=== PATIENT | female | born 1995 | race Hispanic/Latino ===

== ENCOUNTER 2019-07-08 08:41 | Day surgery (SDC) | payer SELFPAY ==
[2019-07-08 09:16] VITALS: BMI 28.0
[2019-07-08 09:19] VITALS: BP 104/68; TEMP 98.2
[2019-07-08] MEDS ORDERED: hydrALAZINE 20 MG/ML VIAL SLOW IVP PRN (09:54)
[2019-07-08] MEDS ORDERED: Acetaminophen 325 MG TAB PO PRN (09:55)
--- NOTE | 2019-07-08 09:58 | PDOC.FPROB ---
FMR OB H&P: HPI - History of Present Illness Chief Complaint: Left sided abdominal pain History of Present Illness: 24 y/o , @ 24.3 wks, dated by 6.1 wk sono, presents to L&D for left sided abdominal pain and nausea. She states this pain started X1 day ago. She complains of increased white vaginal discharge starting X 1 day ago. Pt states she feels baby moving appropriately. She complains of a headache, that was relieved with Tylenol, but still present. Pt denies any dysuria, hematuria, or urinary frequency. She states she has the sensation of contractions every minute. Pt denies and LOF, Vaginal bleeding, or any recent sexual intercourse. 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 Primary Care Physician: BETH FMR OB H&P: Current - Care : 2 Para: 1 Gestational age: 24.3 Due date: 10/25/19 Dating Criteria: 6.1 week sono - OB Labs Blood type: O RH: positive Antibody Screen: negative HIV: negative RPR: negative HepBsAg: negative Rubella: immune Gonorrhea: negative Chlamydia: negative Pap Smear: NILM 1 hour gtt: 115 GBS: unknown H&H: 11.6/34.2 - First Trimester Ultrasound First trimester: 6.1 wks sono, inconsistent with dates of LMP. TARIK: 10/25/19 - Anatomy Survey Anatomy survey: 06/01/19 [place] of 32% FMR OB H&P: History - Past Medical History PMH: Denies prior hx of STI's No known medical problems - OB History OB History: Last delivery vaginal on 06/01/2012 in [facility] - SLABBER LIGHT History SLABBER [place]IGHT History: NILM last pap - Surgical History Sx History: No surgeries - Social History Social History: Denies etoh, alcohol, or drug use. - Family History Family History: Pt denies any family medical history. FMR OB H&P: Medications - Current Home Medications: Medication Instructions Recorded Confirmed Type Nitrofurantoin Macrocrystal 100 mg PO BID 5 Days #10 capsule 07/08/19 Rx [Nitrofurantoin] No122/Iron/Folic Acid 1 each PO DAILY 07/08/19 07/08/19 History [ Multi Tablet] Allergies/Adverse Reactions: Allergies Allergy/AdvReac Type Severity Reaction Status Date / Time No Known Allergies Allergy Verified 07/08/19 09:09 FMR OB H&P: ROS - Review of Systems General: denies: fever/chills, weight/appetite/sleep changes, night sweats, recent trauma Eyes: denies: eye pain, vision changes, double vision, scotomas ENT: denies: nasal congestion, rhinorrhea, sore throat Cardiovascular: denies: chest pain, palpitation, edema Respiratory: denies: cough, congestion, shortness of breath Gastrointestinal: reports: abdominal pain, cramping, nausea. denies: indigestion, bloating, vomiting, diarrhea Genitourinary (Female): reports: vaginal discharge (white, increasing amount over past day), contractions (subjectively occuring every minute). denies: incontinence, dysuria, hematuria, hesitancy, vaginal bleeding Musculoskeletal: reports: pain (low back pain). denies: decrease range of motion Neurologic: denies: numbness, seizures Integumentary: denies: itching, rash Endocrine: denies: polyuria Hematologic/Lymphatic: denies: prolonged or excessive bleeding, enlarged lymph nodes Psychological: denies: depression, anxiety FMR OB H&P: Vital Signs - Maternal Vital signs: Vital Signs - First Documented Temp Pulse Resp BP Pulse Ox 98.2 F 83 18 104/68 98 07/08/19 09:08 07/08/19 09:08 07/08/19 09:08 07/08/19 09:08 07/08/19 09:08 - Heart Tones Baseline: 150 (reactive ) Variability: moderate Acceleration: present Deceleration: absent [place] contractions every: no contractions on TOCO FMR OB H&P: Physical Exam - Physical Exam General: NAD, awake, alert and oriented HEENT: normocephalic and atraumatic, PERRLA, EOMI, MMM, conjunctiva clear, no scleral icterus, grossly normal vision, grossly normal hearing, good dention Neck: supple, FROM, trachea midline, no LAD, no JVD Chest: non-tender to palpation, no lesions Heart: RRR, normal S1/S2, no murmurs/rubs/gallops, pulses present, no edema General: CTAB, no respiratory distress, good air movement, no rales/rhonchi, no wheezing, no retractions Abdomen: soft, gravid, fundus(cm) (at umbilicus) Deviation from normal: tenderness to LLQ with deep palpation Musculoskeletal: normal gait and station, pulses present, FROM in all four extremities, no atrophy Deviation from normal: tenderness to palpation of left flank. Neurological: cranial nerves II through XII intact, sensation to pain,touch and proprioception grossly normal, DTR +2 Skin: no rash, good tugor, capillary refill <2 seconds, no jaundice Lymphatic: no unusual bruising or bleeding, no purpura, no petechia Psychiatric: intact recent and remote memory, good judgement and insight, normal mood and affect FMR OB H&P: Results - Labs Lab results: Microbiology 07/08/19 09:57 Vaginal Vaginitis Screen - Final negative Laboratory Tests 07/08/19 09:57 Urine Blood 1+ A Ur Leukocyte Esterase 500 A Urine WBC 21-50 A Urine Bacteria 1+ Urine Culture Reflexed Yes A FMR OB H&P: A/P - Problem List (1) Acute cystitis during in second trimester Status: Acute Code(s): O23.12 - INFECTIONS OF BLADDER IN , SECOND TRIMESTER Disposition: Acute cystitis, pt stable. Discharge on outpt antibiotics. Follow up on Urine culture. Discussion: Date/Time: 07/08/19 0958 24 y/o @ 24.3 wks presents with LLQ abdominal pain. 1. Acute Cystitis in 2nd Trimester -UA blood, leuk est, WBC and bact positive. -Nitrofurantoin 100 MG BID for X5 days -Reflex culture 2. IUP @ 24.3 wks -FHT's 150 baseline, reactive strip -Maternal vitals within normal limits. -No contractions on TOCO This H&P was discussed with Dr. So, who agree with the above documentation and plan.
--- NOTE | 2019-07-08 10:00 | PDOC.EVN ---
Event Note - Event Note Event Note: OBGYN History And Physical Attending Attestation Time: 953 L&D Patient first seen by Resident subcontracts manager, seen by me. CC: LLQ discomfort, possible CTX, on/off nausea HPI: 24 yo at 24 weeks 3 days with on/off mild LLQ pain, no or GIsxs, no VB, no LOF, no fevers, no recent trauma. White Vag dsch Review of Systems: complete ROS completed and as epr HPI. Unsure if CTX or "cramps" Past Med: none Past OB: unsure if last delivery was at 35 weeks or term (poor historian) ALL: none Social: negative x3 Surgical HX: none PHYSICAL: 104/64 83 18 98.2 NAD Ut soft No VB No gross evidence LOF FHTs pos 140s Assessment and plan: 24 weeks with nonspecific SXS of LLQ discomfort and nausea , vag dsch Plan: 1. VP3; I do not suspect ROM at this time 2. Check CMP 3. Transvag cervical lebgth sono 4. Check clinic record
[2019-07-08] MEDS ORDERED: Ondansetron ODT 4 MG TAB PO PRN (10:03)
[2019-07-08 10:21] LABS: Bilirubin Negative (Negative); Blood, Urine 1+ (Negative); Clarity Clear (Clear); Glucose, Urine (Dipstick) Normal (Negative); Leukocyte 500 Leu/uL (Negative); Nitrite Negative (Negative); Protein, Urine (Dipstick) 10 mg/dL (Neg-Trace); RBC/HPF 0-3 HPF (0-3); Squamous Epithelial 0-3 HPF (0-3); Urobilinogen Normal mg/dL (Less than 2); WBC/HPF 21-50 HPF (0-3)
[2019-07-08 10:30] LABS: Bacteria/HPF 1+ HPF (None Seen)
[2019-07-08 10:31] LABS: Urine Culture Reflex Yes Yes
[2019-07-08 10:37] LABS: ALT (SGPT) 8 U/L (8-55); AST (SGOT) 10 U/L (5-34); Albumin 3.7 g/dL (3.5-5.0); Alkaline Phosphatase 77 U/L (40-150); Anion Gap 11 mmol/L (10-20); BUN (Urea Nitrogen) Less than 4 mg/dL (7.0-18.7); Bilirubin, Total 0.3 mg/dL (0.2-1.2); Calc. Creatinine Clearance 176 mL/min (70-130); Calcium 8.9 mg/dL (7.8-10.44); Carbon Dioxide 22 mmol/L (22-29); Chloride 108 mmol/L (98-107); Estimated GFR-MDRD Greater than 90; Globulin 2.6 g/dL (2.4-3.5); Glucose 94 mg/dL (70-105); Potassium 3.6 mmol/L (3.5-5.1); Protein, Total 6.3 g/dL (6.0-8.3); Sodium 137 mmol/L (136-145)
--- NOTE | 2019-07-08 11:22 | ULT ---
[facility] History: Evaluate cervical length. Comparison: None. Findings: Real-time grayscale evaluation of the cervix was performed. Cervix is closed and measures 4.5 cm in length. Impression: Closed cervix measuring 4.5 cm in length.
--- NOTE | 2019-07-08 11:44 | PDOC.EVN ---
Event Note - Event Note Event Note: Faculty Note: CX length normal CMP ok UA c/w UTI...will RX with macrobid 100mg po BID X 5 days No evidence LOF or PTL
== END 2019-07-08 11:21 | disposition home or self-care (01) ==
LOC: L&D/OP 08:41
PROVIDERS: ATTEND Emergency Medicine
DX: O23.12 Infections of bladder in pregnancy, second trimester (principal); B96.20 Unspecified Escherichia coli [E. coli] as the cause of diseases classified elsewhere; O99.89 Other specified diseases and conditions complicating pregnancy, childbirth and the puerperium; N89.8 Other specified noninflammatory disorders of vagina; Z3A.24 24 weeks gestation of pregnancy
CPT/HCPCS: 36415; 51701; 76815; 80053; 81001; 87077; 87086; 87186; 87480; 87510; 87660; 99283

== ENCOUNTER 2019-10-09 05:31 | Inpatient (IN) | payer MEDICAID, OTHER, SELFPAY ==
[2019-10-09 06:06] VITALS: BMI 31.9
[2019-10-09] MEDS ORDERED: Ondansetron PF 4 MG/2 ML Vial IVP PRN ×2 (06:11→14:03)
[2019-10-09] MEDS ORDERED: Calcium Gluc 4.6 MEQ/10 ML (100 MG/ML) SLOW IVP PRN (06:11)
[2019-10-09] MEDS ORDERED: hydrALAZINE 20 MG/ML VIAL SLOW IVP PRN ×2 (06:11)
[2019-10-09] MEDS: Magnesium Sulfate 20 GM/WATER 500 ML BAG IVPB SCH (06:30)
[2019-10-09 06:32] LABS: Hemoglobin 11.6 g/dL (12.0-16.0); Mean Corpuscular HGB CONC 35.5 g/dL (32.0-36.0); Mean Corpuscular Hemoglobin 28.7 pg (27.0-31.0); Mean Corpuscular Volume 80.8 fL (78.0-98.0); Mean Platelet Volume 8.5 fL (7.4-10.4); Platelet Count 129 thou/uL (130-400); RBC Distribution Width 12.3 % (11.5-14.5); Red Blood Cell (RBC) Count 4.05 mill/uL (4.20-5.40); White Blood Cell (WBC) Count 8.6 thou/uL (4.8-10.8)
[2019-10-09] MEDS: Lactated Ringer's 1,000 ML IV SCH ×3 (06:38→22:42)
[2019-10-09 06:51] LABS: ALT (SGPT) 47 U/L (8-55); AST (SGOT) 59 U/L (5-34); Albumin 3.3 g/dL (3.5-5.0); Alkaline Phosphatase 200 U/L (40-110); Anion Gap 16 mmol/L (10-20); BUN (Urea Nitrogen) 7 mg/dL (7.0-18.7); Bilirubin, Total 0.5 mg/dL (0.2-1.2); Calc. Creatinine Clearance 153 mL/min (70-130); Calcium 8.8 mg/dL (7.8-10.44); Carbon Dioxide 18 mmol/L (22-29); Chloride 106 mmol/L (98-107); Estimated GFR-MDRD Greater than 90; Globulin 3.4 g/dL (2.4-3.5); Glucose 93 mg/dL (70-105); Potassium 4.1 mmol/L (3.5-5.1); Protein, Total 6.7 g/dL (6.0-8.3); Sodium 136 mmol/L (136-145)
[2019-10-09] MEDS ORDERED: Misoprostol 100 MCG TAB VAG SCH ×2 (07:00)
[2019-10-09] MEDS ORDERED: Misoprostol 100 MCG TAB ONE ×2 (07:04→07:12)
[2019-10-09] MEDS ORDERED: Butorphanol Tartrate 1 MG/ML VIAL ONE (07:07)
[2019-10-09 07:08] LABS: HBSAg Index 0.21 S/CO (0-0.99); Hep B Surf Ag Non-Reactive S/CO (NonReactive); Syphilis Antibody Nonreactive (Nonreactive); Syphilis Antibody Index 0.04 S/CO (<1.00 Non-Reactive)
--- NOTE | 2019-10-09 07:55 | PDOC.FPROB ---
FMR OB H&P: HPI - History of Present Illness Chief Complaint: H/A, RUQ pain Indentification: 24 y/o @ 37.5 WGA by 6.1 wk sono History of Present Illness: Pt reports H/A for about 5 days and then RUQ pain that started after. She reports intermittent hand and foot swelling. Denies SOB or vision changes. She reports some clear vaginal d/c yesterday afternoon, but otherwise no continued leaking or d/c. She denies vaginal bleeding or ctx. Endorses movement. Primary Care Physician: Dr. Cabrera - [facility] FMR OB H&P: Current - Care : 2 Para: 1001 Gestational age: 37w5d Due date: 10/25/19 Dating Criteria: 6w1d sono - OB Labs Blood type: O RH: positive Antibody Screen: negative HIV: negative RPR: negative HepBsAg: negative Rubella: immune Gonorrhea: negative Chlamydia: negative Pap Smear: NILM 1 hour gtt: 138 H&H: 10.3/29.8 FMR OB H&P: History - Past Medical History PMH: None - OB History OB History: 1 prior term - PRODUCT FINISHER History PRODUCT FINISHER History: Denies h/o abnormal paps or STI's - Surgical History Sx History: Appendectomy - Social History Social History: Denies tobacco, EtOH, or drug use - Family History Family History: Denies FMR OB H&P: Medications - Current Home Medications: Medication Instructions Recorded Confirmed Type Nitrofurantoin Macrocrystal 100 mg PO BID 5 Days #10 capsule 07/08/19 10/09/19 Rx [Nitrofurantoin] No122/Iron/Folic Acid 1 each PO DAILY 07/08/19 10/09/19 History [ Multi Tablet] Allergies/Adverse Reactions: Allergies Allergy/AdvReac Type Severity Reaction Status Date / Time No Known Allergies Allergy Verified 10/09/19 06:01 FMR OB H&P: ROS - Review of Systems General: denies: fever/chills, fatigue Eyes: denies: vision changes, scotomas ENT: denies: nasal congestion, sore throat Cardiovascular: reports: edema. denies: chest pain Respiratory: denies: cough, shortness of breath Gastrointestinal: reports: abdominal pain. denies: nausea Genitourinary (Female): reports: vaginal discharge. denies: vaginal bleeding, contractions Musculoskeletal: denies: pain, tenderness Neurologic: denies: syncope, seizures Integumentary: denies: itching, rash Hematologic/Lymphatic: denies: prolonged or excessive bleeding, enlarged lymph nodes FMR OB H&P: Vital Signs - Maternal Vital signs: Vital Signs - First Documented Pulse BP Pulse Ox 98 148/100 H 100 10/09/19 05:59 10/09/19 05:59 10/09/19 05:59 - Heart Tones Baseline: 150 Variability: moderate (initially, but now minimal after morphine administration) Acceleration: present Deceleration: variable (intermittent) Category: category 2 FMR OB H&P: Physical Exam - Physical Exam General: NAD, awake, alert and oriented HEENT: MMM, conjunctiva clear, grossly normal vision, grossly normal hearing Neck: supple, no LAD Heart: RRR, normal S1/S2, no murmurs/rubs/gallops, pulses present, no edema General: CTAB, no respiratory distress, good air movement, no rales/rhonchi, no wheezing Abdomen: soft, gravid, other (TTP in RUQ) Musculoskeletal: pulses present, FROM in all four extremities Neurological: cranial nerves II through XII intact, no clonus Skin: good tugor, capillary refill <2 seconds Psychiatric: intact recent and remote memory, good judgement and insight - Pelvic Exam SVE: 1/0/-2 Presentation: cephalic as confirmed on bedside sono FMR OB H&P: Results - Labs Lab results: Laboratory Results - last 24 hr 10/09/19 10/09/19 10/09/19 06:21 06:21 06:21 WBC RBC Hgb Hct MCV MCH MCHC RDW Plt Count MPV Sodium 136 Potassium 4.1 Chloride 106 Carbon Dioxide 18 L Anion Gap 16 BUN 7 Creatinine 0.62 Estimated GFR (MDRD) Greater than 90 Glucose 93 Calcium 8.8 Total Bilirubin 0.5 AST 59 H ALT 47 Alkaline Phosphatase 200 H Serum Total Protein 6.7 Albumin 3.3 L Globulin 3.4 Albumin/Globulin Ratio 1.0 L Urine Protein Syphilis IgG/IgM Ab Nonreactive Hep Bs Antigen Non-Reactive Blood Type Antibody Screen 10/09/19 10/09/19 10/09/19 06:21 06:21 06:42 WBC 8.6 RBC 4.05 L Hgb 11.6 L Hct 32.7 L MCV 80.8 MCH 28.7 MCHC 35.5 RDW 12.3 Plt Count 129 L MPV 8.5 Sodium Potassium Chloride Carbon Dioxide Anion Gap BUN Creatinine Estimated GFR (MDRD) Glucose Calcium Total Bilirubin AST ALT Alkaline Phosphatase Serum Total Protein Albumin Globulin Albumin/Globulin Ratio Urine Protein Syphilis IgG/IgM Ab Hep Bs Antigen Blood Type O POSITIVE O POSITIVE Antibody Screen NEGATIVE 10/09/19 06:46 WBC RBC Hgb Hct MCV MCH MCHC RDW Plt Count MPV Sodium Potassium Chloride Carbon Dioxide Anion Gap BUN Creatinine Estimated GFR (MDRD) Glucose Calcium Total Bilirubin AST ALT Alkaline Phosphatase Serum Total Protein Albumin Globulin Albumin/Globulin Ratio Urine Protein 300 A Syphilis IgG/IgM Ab Hep Bs Antigen Blood Type Antibody Screen FMR OB H&P: A/P - Problem List (1) Pre-eclampsia, severe, third trimester Current Visit: Yes Status: Acute Code(s): O14.13 - SEVERE PRE-ECLAMPSIA, THIRD TRIMESTER Comment: Mag check -Will treat BP with labetalol -Continue mag -Next mag check in 90 minutes Assessment and Plan: Pt with RUQ pain, H/A, single BP of 173/101 that improved after hydralazine administration. Continue BP's in the 140s/90s range -Magnesium -Mag checks q4h -Begin IOL with cytotec as pt is term -Seizure precaution -Treat any BP > 160/110 with labetalol or hydralazine -Trend labs q6h (2) Term Current Visit: Yes Status: Acute Code(s): Z34.90 - ENCNTR FOR SUPRVSN OF NORMAL , UNSP, UNSP TRIMESTER Comment: Pt making cervical change and SROM -Cat 2 strip -Will get epidural -Treat blood pressure with labetalol -Monitor closely -After epidural will place IUPC and consider amnioinfusion Assessment and Plan: Admit for IOL due to pre-eclampsia with severe features -Cytotec -Continuous monitoring -Cervical checks q4h Disposition: Admit to L&D Discussion: Date/Time: 10/09/19 4668 This H&P was discussed with Dr. Mackay who agrees with the above documentation and plan. Signature: Andreina Sanders MD, PGY-3 Addendum - Attending - Attending Attestation Date/Time: 10/09/19 8679 I personally evaluated the patient and discussed the management with Dr. Sanders. at 37 weeks with [facility]. Will admit and deliver. I agree with the History, Examination, Assessment and Plan documented above.
[2019-10-09] MEDS ORDERED: Morphine 2 MG/ML SYRINGE SLOW IVP PRN (08:36)
[2019-10-09] MEDS ORDERED: Labetalol HCl 100 MG/20 ML VIAL SLOW IVP PRN (08:58)
[2019-10-09] MEDS: Misoprostol 100 MCG TAB VAG SCH (10:30)
--- NOTE | 2019-10-09 10:47 | PDOC.LDPN ---
Labor & Delivery Progress Note - Subjective Subjective: comfortable - Objective Vital signs reviewed and normal: yes (all < 140/90 since 0900. Only one severe range requiring hydralazine about 4hrs ago) General: NAD Uterine fundus: non tender SVE: 1/0/-2 @ 1045 by nurse FHT: category 1, variability present [place] contractions every: 1-2 min - Assessment (1) Pre-eclampsia, severe, third trimester Code(s): O14.13 - SEVERE PRE-ECLAMPSIA, THIRD TRIMESTER Current Visit: Yes Status: Acute Comment: Mag check -Will treat BP with labetalol -Continue mag -Next mag check in 90 minutes (2) Term Code(s): Z34.90 - ENCNTR FOR SUPRVSN OF NORMAL , UNSP, UNSP TRIMESTER Current Visit: Yes Status: Acute Comment: Pt making cervical change and SROM -Cat 2 strip -Will get epidural -Treat blood pressure with labetalol -Monitor closely -After epidural will place IUPC and consider amnioinfusion Plan: continue plan of care Addendum - Attending - Attending Attestation Date/Time: 10/09/19 5666 I personally evaluated the patient and discussed the management with Dr. Sanders. I agree with the Assessment and Plan documented above.
[2019-10-09] MEDS ORDERED: Bupivacaine/Epinephrine 0.5% 10 ML VIAL ONE (11:11)
[2019-10-09] MEDS ORDERED: Dexamethasone 20 MG/5 ML VIAL ONE (11:16)
[2019-10-09] MEDS ORDERED: Ondansetron PF 4 MG/2 ML Vial ONE (11:16)
[2019-10-09] MEDS ORDERED: Lidocaine 1% PF 5 ML VIAL ONE (11:16)
[2019-10-09] MEDS ORDERED: PROPOFOL 200 MG/20 ML VIAL ONE (11:16)
[2019-10-09] MEDS ORDERED: Succinylcholine Chloride 20 MG/ML 10 ml SYRINGE FS ONE (11:16)
[2019-10-09] MEDS ORDERED: Morphine 4 MG/ML VIAL SLOW IVP PRN (12:30)
--- NOTE | 2019-10-09 13:15 | PDOC.LDPN ---
Labor & Delivery Progress Note - Subjective Subjective: painful contractions - Objective Abnormal vital signs: BP 185/100 General: NAD SVE: 90/-1 @ 1310 - SROM clear fluid FHT: category 2, variable decelerations, late decelerations, variability present - Assessment (1) Pre-eclampsia, severe, third trimester Code(s): O14.13 - SEVERE PRE-ECLAMPSIA, THIRD TRIMESTER Current Visit: Yes Status: Acute Comment: Mag check -Will treat BP with labetalol -Continue mag -Next mag check in 90 minutes (2) Term Code(s): Z34.90 - ENCNTR FOR SUPRVSN OF NORMAL , UNSP, UNSP TRIMESTER Current Visit: Yes Status: Acute Comment: Pt making cervical change and SROM -Cat 2 strip -Will get epidural -Treat blood pressure with labetalol -Monitor closely -After epidural will place IUPC and consider amnioinfusion Plan: continue plan of care Addendum - Attending - Attending Attestation Date/Time: 10/09/19 4435 I personally evaluated the patient and discussed the management with Dr. Sanders. I agree with the Assessment and Plan documented above.
[2019-10-09] MEDS ORDERED: Fentanyl 4 mcg/Bup 0.1% Cadd 100 ML ONE (13:26)
[2019-10-09] MEDS ORDERED: Bupivacaine 0.5% 10 ML VIAL ONE (13:27)
[2019-10-09] MEDS ORDERED: Fentanyl 100 MCG/2 ML VIAL ONE ×2 (13:27→20:49)
[2019-10-09] MEDS ORDERED: ePHEDrine/0.9% NaCl/PF SYRINGE 50 mg/10 ml SLOW IVP PRN (14:03)
[2019-10-09] MEDS ORDERED: Lactated Ringer's 500 ML IV PRN (14:03)
[2019-10-09] MEDS ORDERED: diphenhydrAMINE 50 MG/ML VIAL IVP PRN (14:03)
[2019-10-09] MEDS ORDERED: Promethazine HCl 25 MG/ML VIAL IM PRN (14:03)
[2019-10-09] MEDS ORDERED: Acetaminophen 325 MG TAB PO PRN (14:03)
[2019-10-09] MEDS ORDERED: Naloxone HCl 0.4 mg/ml Vial IVP PRN ×2 (14:03)
[2019-10-09] MEDS ORDERED: Fentanyl 100 MCG/2 ML VIAL I-THECAL ONE (14:03)
[2019-10-09] MEDS ORDERED: NS / Oxytocin 40 units/1000ml 1,000 ML ONE (14:05)
[2019-10-09] MEDS ORDERED: Fentanyl 4 mcg/Bupivacaine 0.1% Cassette 100 ML EPIDURAL SCH (14:15)
[2019-10-09] MEDS ORDERED: Bupivacaine 0.5% 10 ML VIAL EPIDURAL SCH (14:15)
[2019-10-09] MEDS ORDERED: Communication Order-Pharmacy FS SCH (14:15)
[2019-10-09] MEDS: NS / Oxytocin 40 units/1000ml 1,000 ML IV SCH ×2 (14:25→19:00)
[2019-10-09] MEDS ORDERED: Bisacodyl 10 MG SUPP PR PRN (14:28)
[2019-10-09] MEDS ORDERED: Adacel (T-DAP) 0.5 ML SYRINGE IM ONE (14:28)
[2019-10-09] MEDS ORDERED: Milk Of Magnesia 30 ML UDCUP PO PRN (14:28)
--- NOTE | 2019-10-09 14:32 | PDOC.OPDEL ---
OB Operative/Delivery Note Delivery Dr/Surgeon: Dr. Sanders and Dr. Edwards with Dr. Mackay attending Assist: Dr. Cabrera supervised laceration repair Pre-Delivery Diagnosis: medically indicated induction (for pre-eclampsia with severe features) Procedure/Post Delivery Dx: spontaneous vaginal delivery Weeks gestation: 37 (37w5d) Anesthesia: epidural - Findings A Sex: female - 1 min: 8 - 5 min: 9 - Additional Findings/Plan Placenta delivered: spontaneous Repaired Obstetrical Laceration: 1st degree (lac repaired with 2-0 chromic) Estimated blood loss: 110mL Compilations/Other Findings: This is a 24 year old female @ 37.5 wks who delivered a viable F infant at 1410 on 10/09/19. Following an uneventful antepartum course, a vigorous female was delivered over an intact perineum in the occipitoanterior position. Anterior Shoulder and then remainder of the body delivered. No nuchal cord. The head was held down and mouth and nares were bulb suctioned. Cord clamped and cut and cord blood collected. Placenta delivered intact with a 3 vessel cord noted. Fundal massage was performed and the fundus was firm. The cervix and vagina were inspected and found to have first degree laceration noted and repaired with 2-0 chromic in the usual fashion with good approximation. Infant went to nursery in good condition for routine care. Apgars were 8&9 at 1 & 5 minutes, respectively. Patient tolerated delivery well and will stay in L &D for 24 hours for magnesium. QBL 110mL Post delivery plan: recovery in LICU Addendum - Attending - Attending Attestation Date/Time: 10/09/19 1442 I personally evaluated the pt., discussed the management with Dr. Sanders and attended this . Rapid progress after epidural to complete. FHTs down, told to push. Delivered vigorous infant x 2 pushes. I agree with the Assessment and Plan documented above.
[2019-10-09] MEDS: Magnesium Sulfate 20 gm/500 ml 20 GM/500 ML BAG IVPB SCH (14:44)
[2019-10-09 15:36] LABS: #Eosinphils 0.1 thou/uL (0.0-0.7); #Lymphocytes 1.5 thou/uL (1.20-3.40); #Monocytes 0.6 thou/uL (0.11-0.59); #Neutrophils 9.5 thou/uL (1.40-6.50); %Basophils 0.3 % (0.0-1.0); %Eosinophils 0.7 % (0.0-10.0); %Lymphocytes 12.6 % (21.0-51.0); %Monocytes 5.3 % (0.0-10.0); %Neutrophils 81.1 % (42.0-75.0); Mean Corpuscular HGB CONC 34.8 g/dL (32.0-36.0); Mean Corpuscular Hemoglobin 28.5 pg (27.0-31.0); Mean Corpuscular Volume 81.7 fL (78.0-98.0); Mean Platelet Volume 8.1 fL (7.4-10.4); Platelet Count 114 thou/uL (130-400); RBC Distribution Width 12.3 % (11.5-14.5); Red Blood Cell (RBC) Count 3.85 mill/uL (4.20-5.40); White Blood Cell (WBC) Count 11.7 thou/uL (4.8-10.8)
[2019-10-09 15:54] LABS: ALT (SGPT) 41 U/L (8-55); AST (SGOT) 54 U/L (5-34); Alkaline Phosphatase 184 U/L (40-110); Anion Gap 17 mmol/L (10-20); BUN (Urea Nitrogen) 6 mg/dL (7.0-18.7); Bilirubin, Total 0.4 mg/dL (0.2-1.2); Calc. Creatinine Clearance 153 mL/min (70-130); Calcium 7.2 mg/dL (7.8-10.44); Carbon Dioxide 17 mmol/L (22-29); Chloride 104 mmol/L (98-107); Estimated GFR-MDRD Greater than 90; Globulin 3.5 g/dL (2.4-3.5); Glucose 106 mg/dL (70-105); Potassium 4.5 mmol/L (3.5-5.1); Protein, Total 6.5 g/dL (6.0-8.3); Sodium 133 mmol/L (136-145)
[2019-10-09] MEDS ORDERED: Ibuprofen 800 MG TAB PO SCH ×2 (16:30→22:00)
[2019-10-09] MEDS ORDERED: Misoprostol 200 MCG TAB ONE (17:39)
[2019-10-09] MEDS ORDERED: Misoprostol 200 MCG TAB PR SCH (17:45)
--- NOTE | 2019-10-09 18:59 | PDOC.BPN ---
<Andreina Sanders - Last Filed: 10/09/19 18:58> - Brief Progress Note Called about continued slow bleeding post- Gave order for 800mcg cytotec and pt continued to bleed Did bimanual exam and evacuated several blood clots and pt began to firm more -Will give hemabate and continue to monitor <Dimitrios Mackay - Last Filed: 10/09/19 20:46> Addendum - Attending - Attending Attestation Date/Time: 10/09/192044 I personally evaluated the patient and discussed the management with Dr. Sanders. I agree with the Examination, Assessment and Plan documented above.
[2019-10-09] MEDS ORDERED: Carboprost 250 MCG/ML AMP ONE (19:00)
[2019-10-09 19:06] LABS: #Basophils 0.1 thou/uL (0.0-0.2); #Eosinphils 0.1 thou/uL (0.0-0.7); #Lymphocytes 1.9 thou/uL (1.20-3.40); #Monocytes 0.6 thou/uL (0.11-0.59); #Neutrophils 9.3 thou/uL (1.40-6.50); %Basophils 0.6 % (0.0-1.0); %Eosinophils 0.4 % (0.0-10.0); %Lymphocytes 15.8 % (21.0-51.0); %Monocytes 5.3 % (0.0-10.0); %Neutrophils 77.8 % (42.0-75.0); Hemoglobin 10.3 g/dL (12.0-16.0); Mean Corpuscular HGB CONC 34.7 g/dL (32.0-36.0); Mean Corpuscular Hemoglobin 28.6 pg (27.0-31.0); Mean Corpuscular Volume 82.4 fL (78.0-98.0); Mean Platelet Volume 8.2 fL (7.4-10.4); Platelet Count 114 thou/uL (130-400); RBC Distribution Width 12.2 % (11.5-14.5); Red Blood Cell (RBC) Count 3.59 mill/uL (4.20-5.40)
[2019-10-09] MEDS ORDERED: Carboprost 250 MCG/ML AMP IM SCH (19:15)
[2019-10-09 19:21] LABS: ALT (SGPT) 37 U/L (8-55); AST (SGOT) 39 U/L (5-34); Albumin 2.8 g/dL (3.5-5.0); Alkaline Phosphatase 163 U/L (40-110); Anion Gap 15 mmol/L (10-20); BUN (Urea Nitrogen) 6 mg/dL (7.0-18.7); Bilirubin, Total 0.3 mg/dL (0.2-1.2); Calc. Creatinine Clearance 179 mL/min (70-130); Calcium 6.9 mg/dL (7.8-10.44); Carbon Dioxide 16 mmol/L (22-29); Chloride 103 mmol/L (98-107); Estimated GFR-MDRD Greater than 90; Globulin 2.9 g/dL (2.4-3.5); Glucose 99 mg/dL (70-105); Protein, Total 5.7 g/dL (6.0-8.3); Sodium 130 mmol/L (136-145)
[2019-10-09 19:22] LABS: PTT 32.6 SEC (22.9-36.1); Prothrombin Time 12.7 SEC (12.0-14.7)
--- NOTE | 2019-10-09 20:34 | PDOC.EVN ---
Event Note - Event Note Event Note: CTSP for bleeding. VSS AF Mg at 1 gm/hr. Exam shows clot in ELIAS, unable to express. Hgb=10, PT/PTT WNL. Will proceed with EUA and D&C at this time. Consent obtained.
[2019-10-09] MEDS ORDERED: Lidocaine 2% PF 5 ML VIAL ONE ×2 (21:10→21:11)
--- NOTE | 2019-10-09 21:15 | PDOC.BPN ---
- Brief Progress Note Magnesium Check Symptoms include: headache, RUQ pain Denies change in vision, blurry vision Magnesium running at 1g/hr BPs: 130s/80s x3 in past 2 hours w/ max BP of 146/86 once UOP: 108 mL/hr for past 5 hours (1.5 mL/kg/hr) PEx: lower reflexes not elicited, anesthesia just redosed medication for D&C Biceps reflex 2+ bilaterally. Will reassess in ~4 hours after pt returns from D&C for continued bleeding.
[2019-10-09] MEDS ORDERED: Ondansetron HCl/PF 4 MG/2 ML Vial IVP PRN (21:29)
[2019-10-09] MEDS: Ampicillin/Sulbactam 3 GM in Sodium Chloride 0.9% 100 ML IVPB SCH (23:20)
[2019-10-09] MEDS: Misoprostol 200 MCG TAB PO SCH (23:58)
--- NOTE | 2019-10-10 00:39 | PDOC.BPN ---
- Brief Progress Note Magnesium Check Symptoms include: + headache, mild RUQ pain, unchanged from previous Denies changes in vision or blurry vision Magnesium running at 1g/hr Pt recently returned from D&C and cannot feel legs from anesthesia. BPs: 150/83. Previous BP was 140/87. Otherwise ~130s/80s. UOP: 350 mL after return from D&C. PEx: lower reflexes not elicited, Biceps reflex 2+ bilaterally. Unchanged from previous exam. Will reassess in ~4 hours. _
[2019-10-10] MEDS: Magnesium Sulfate 20 GM/WATER 500 ML BAG IVPB SCH (02:11)
[2019-10-10] MEDS: Ferrous Sulfate 325 MG TAB PO SCH ×4 (02:12→16:24)
[2019-10-10] MEDS: Misoprostol 100 MCG TAB VAG SCH (02:18)
--- NOTE | 2019-10-10 03:01 | OP ---
DATE OF PROCEDURE: 10/09/2019 PREOPERATIVE DIAGNOSIS: Persistent bleeding. POSTOPERATIVE DIAGNOSIS: Suspected retained products of conception. PROCEDURE: Uterine curettage. FUEL SYSTEM MAINTENANCE WORKER SURGEON: Andreina Sanders MD. ANESTHESIA: General endotracheal. ESTIMATED BLOOD LOSS: 200 mL. COMPLICATIONS: None. TECHNIQUE IN DETAIL: After good anesthesia was achieved, the patient was prepped and draped in the usual sterile fashion in the dorsal lithotomy position. A Prather catheter was kept in place. On exam, it could be seen that there was clot protruding from the lower uterine segment. The upper and lower aspects of the cervix were grasped with ring forceps. Prior to this, there was no evidence of vaginal or cervical lacerations as a source of bleeding. The clot was removed from the cervix and then a sharp curette was passed through all quadrants of the uterus. What appeared to be retained products was seen. A 12 mm suction curette was then placed into the uterus and with suction, a moderate amount of what looked like retained placental fragments were obtained. Patient was observed in the OR and had no substantial bleeding at the conclusion of the curettage. All instruments were then removed from the vagina. Sponge and instrument counts were correct. The patient tolerated the procedure adequately and will be taken back up to Labor and Delivery to continue her magnesium recovery. Job ID: [id number]
--- NOTE | 2019-10-10 04:56 | PDOC.OBMPN ---
[facility] LDICU PN: Subj - Interval History Indentification: 24 y/o @ 37.5 delivered via with subsequent retained products Interval History: Required D&C on 10/09/19. Doing well. Minimal bleeding [facility] LDICU PN: Obj - Maternal Vital signs: BP: 110/59 HR: 85 RR: 18 - Urine output I&O: 10/08/19 10/09/19 10/10/19 06:59 06:59 06:59 Output Total 408 Balance -408 [facility] LDICU PN: Exam - Physical Exam General: NAD, awake, alert and oriented HEENT: MMM, grossly normal vision, grossly normal hearing Neck: supple Heart: pulses present, no edema General: no respiratory distress Abdomen: soft, fundus(cm) (firm) Skin: good tugor, capillary refill <2 seconds Lymphatic: no unusual bruising or bleeding, no purpura [facility] LDICU PN: Data - Labs Lab results: Laboratory Results - last 24 hr 10/09/19 10/09/19 10/09/19 06:21 06:21 06:21 WBC RBC Hgb Hct MCV MCH MCHC RDW Plt Count MPV Neutrophils % Neutrophils % (Manual) Lymphocytes % Monocytes % Eosinophils % Basophils % Neutrophils # Lymphocytes # Monocytes # Eosinophils # Basophils # PT INR APTT Sodium 136 Potassium 4.1 Chloride 106 Carbon Dioxide 18 L Anion Gap 16 BUN 7 Creatinine 0.62 Estimated GFR (MDRD) Greater than 90 Glucose 93 Calcium 8.8 Total Bilirubin 0.5 AST 59 H ALT 47 Alkaline Phosphatase 200 H Serum Total Protein 6.7 Albumin 3.3 L Globulin 3.4 Albumin/Globulin Ratio 1.0 L Urine Protein Syphilis IgG/IgM Ab Nonreactive Hep Bs Antigen Non-Reactive Blood Type Antibody Screen Crossmatch 10/09/19 10/09/19 10/09/19 06:21 06:21 06:42 WBC 8.6 RBC 4.05 L Hgb 11.6 L Hct 32.7 L MCV 80.8 MCH 28.7 MCHC 35.5 RDW 12.3 Plt Count 129 L MPV 8.5 Neutrophils % Neutrophils % (Manual) Lymphocytes % Monocytes % Eosinophils % Basophils % Neutrophils # Lymphocytes # Monocytes # Eosinophils # Basophils # PT INR APTT Sodium Potassium Chloride Carbon Dioxide Anion Gap BUN Creatinine Estimated GFR (MDRD) Glucose Calcium Total Bilirubin AST ALT Alkaline Phosphatase Serum Total Protein Albumin Globulin Albumin/Globulin Ratio Urine Protein Syphilis IgG/IgM Ab Hep Bs Antigen Blood Type O POSITIVE O POSITIVE Antibody Screen NEGATIVE Crossmatch See Detail 10/09/19 10/09/19 10/09/19 06:46 15:20 15:20 WBC 11.7 H RBC 3.85 L Hgb 11.0 L Hct 31.5 L MCV 81.7 MCH 28.5 MCHC 34.8 RDW 12.3 Plt Count 114 L MPV 8.1 Neutrophils % 81.1 H Neutrophils % (Manual) Not Reportable Lymphocytes % 12.6 L Monocytes % 5.3 Eosinophils % 0.7 Basophils % 0.3 Neutrophils # 9.5 H Lymphocytes # 1.5 Monocytes # 0.6 H Eosinophils # 0.1 Basophils # 0.0 PT INR APTT Sodium 133 L Potassium 4.5 Chloride 104 Carbon Dioxide 17 L Anion Gap 17 BUN 6 L Creatinine 0.62 Estimated GFR (MDRD) Greater than 90 Glucose 106 H Calcium 7.2 L Total Bilirubin 0.4 AST 54 H ALT 41 Alkaline Phosphatase 184 H Serum Total Protein 6.5 Albumin 3.0 L Globulin 3.5 Albumin/Globulin Ratio 0.9 L Urine Protein 300 A Syphilis IgG/IgM Ab Hep Bs Antigen Blood Type Antibody Screen Crossmatch 10/09/19 10/09/19 10/09/19 18:51 18:51 18:51 WBC 12.0 H RBC 3.59 L Hgb 10.3 L Hct 29.6 L MCV 82.4 MCH 28.6 MCHC 34.7 RDW 12.2 Plt Count 114 L MPV 8.2 Neutrophils % 77.8 H Neutrophils % (Manual) Not Reportable Lymphocytes % 15.8 L Monocytes % 5.3 Eosinophils % 0.4 Basophils % 0.6 Neutrophils # 9.3 H Lymphocytes # 1.9 Monocytes # 0.6 H Eosinophils # 0.1 Basophils # 0.1 PT 12.7 INR 1.0 APTT 32.6 Sodium 130 L Potassium 4.0 Chloride 103 Carbon Dioxide 16 L Anion Gap 15 BUN 6 L Creatinine 0.53 L Estimated GFR (MDRD) Greater than 90 Glucose 99 Calcium 6.9 L Total Bilirubin 0.3 AST 39 H ALT 37 Alkaline Phosphatase 163 H Serum Total Protein 5.7 L Albumin 2.8 L Globulin 2.9 Albumin/Globulin Ratio 1.0 L Urine Protein Syphilis IgG/IgM Ab Hep Bs Antigen Blood Type Antibody Screen Crossmatch [facility] LDICU PN:A/P - Problem List (1) Pre-eclampsia, severe, third trimester Current Visit: Yes Status: Acute Code(s): O14.13 - SEVERE PRE-ECLAMPSIA, THIRD TRIMESTER Comment: Mag check -Will treat severe BP with labetalol -Continue mag, will stop at 2pm today -Repeat CBC, CMP this AM (2) Term Current Visit: Yes Status: Acute Code(s): Z34.90 - ENCNTR FOR SUPRVSN OF NORMAL , UNSP, UNSP TRIMESTER Comment: s/p delivery via -Continue routine care -PNV -Iron -Ibuprofen prn Disposition: Continue to monitor in LICU Discussion: Date/Time: 10/10/19 [id number] This H&P was discussed with Dr. Mackay who agrees with the above documentation and plan. Signature: Andreina Sanders MD, PGY-3 Addendum - Attending - Attending Attestation Date/Time: 10/10/19 6213 I personally evaluated the patient and discussed the management with Dr. Sanders. I agree with the Assessment and Plan documented above.
[2019-10-10] MEDS: Ampicillin/Sulbactam 3 GM in Sodium Chloride 0.9% 100 ML IVPB SCH ×2 (05:00→11:12)
[2019-10-10] MEDS: Misoprostol 200 MCG TAB PO SCH ×2 (05:00→11:12)
--- NOTE | 2019-10-10 05:32 | PDOC.BPN ---
- Brief Progress Note Magnesium Check Symptoms include: headache, pt reports this is improved. Mild epigastric pain. Improved symptoms from prior check Denies changes in vision or blurry vision Magnesium running at 1g/hr. BP max since last exam: 123/86. UOP: 185 mL/hr PEx: Biceps reflex 2+ bilaterally. Pt appears to be improving. Will reassess in ~[address] Mackay & Tommy, plan to stop magnesium at 1400 on 10/10.
[2019-10-10] MEDS: Magnesium Sulfate 20 gm/500 ml 20 GM/500 ML BAG IVPB SCH (07:05)
[2019-10-10 09:06] LABS: #Lymphocytes 1.9 thou/uL (1.20-3.40); #Monocytes 0.3 thou/uL (0.11-0.59); #Neutrophils 14.1 thou/uL (1.40-6.50); %Basophils 0.1 % (0.0-1.0); %Eosinophils 0.1 % (0.0-10.0); %Lymphocytes 11.7 % (21.0-51.0); %Monocytes 2.1 % (0.0-10.0); Hemoglobin 7.9 g/dL (12.0-16.0); Mean Corpuscular HGB CONC 34.2 g/dL (32.0-36.0); Mean Corpuscular Hemoglobin 28.2 pg (27.0-31.0); Mean Corpuscular Volume 82.6 fL (78.0-98.0); Platelet Count 127 thou/uL (130-400); RBC Distribution Width 12.2 % (11.5-14.5); Red Blood Cell (RBC) Count 2.79 mill/uL (4.20-5.40); White Blood Cell (WBC) Count 16.4 thou/uL (4.8-10.8)
[2019-10-10 09:14] LABS: ALT (SGPT) 30 U/L (8-55); AST (SGOT) 30 U/L (5-34); Albumin 2.6 g/dL (3.5-5.0); Alkaline Phosphatase 137 U/L (40-110); Anion Gap 13 mmol/L (10-20); BUN (Urea Nitrogen) 6 mg/dL (7.0-18.7); Bilirubin, Total 0.2 mg/dL (0.2-1.2); Calc. Creatinine Clearance 161 mL/min (70-130); Carbon Dioxide 21 mmol/L (22-29); Chloride 104 mmol/L (98-107); Estimated GFR-MDRD Greater than 90; Globulin 2.6 g/dL (2.4-3.5); Glucose 112 mg/dL (70-105); Potassium 4.1 mmol/L (3.5-5.1); Protein, Total 5.2 g/dL (6.0-8.3); Sodium 134 mmol/L (136-145)
--- NOTE | 2019-10-10 09:38 | PDOC.BPN ---
- Brief Progress Note Magnesium Check Symptoms include: No headaches, blurred vision, or out of control pain. Improvement overall. BP max since last exam: 118/67 UOP: 200 mL/hr PEx: Biceps reflex 2+ bilaterally. Will advance diet to clear liquids. Will reassess in 3 hours for likely discontinuation of Mg and transfer to floor. Dr. Lovell is in agreement with plan.
[2019-10-10] MEDS: Docusate Calcium (SURFAK) 240 MG CAP PO SCH ×3 (09:49→21:32)
[2019-10-10] MEDS: Ibuprofen 800 MG TAB PO SCH ×3 (09:50→16:24)
[2019-10-10] MEDS: Prenatal Vitamin 1 TAB PO SCH (09:50)
[2019-10-10] MEDS ORDERED: Benzocaine-Menthol 82.5 ML CAN TOP PRN (15:19)
[2019-10-10] MEDS ORDERED: Adacel (T-DAP) 0.5 ML SYRINGE IM ONE (15:19)
[2019-10-10] MEDS ORDERED: NS / Oxytocin 40 units/1000ml 1,000 ML IV SCH (15:19)
[2019-10-10] MEDS ORDERED: hydrALAZINE 20 MG/ML VIAL SLOW IVP PRN (15:19)
[2019-10-10] MEDS ORDERED: Lanolin Ointment 7 GM TUBE TOP PRN (15:19)
[2019-10-10] MEDS ORDERED: Measles/Mumps/Rubella 10 MCG/0.5 ML VIAL SC ONE (15:19)
[2019-10-10] MEDS ORDERED: Milk Of Magnesia 30 ML UDCUP PO PRN (15:19)
[2019-10-10] MEDS ORDERED: Bisacodyl 10 MG SUPP PR PRN (15:19)
--- NOTE | 2019-10-10 15:40 | PDOC.BPN ---
- Brief Progress Note Pt evaluated at 12:40 PT has no complaints. Denies CP, SOB, abd pain or headache. Vitals: 114/69 BP, 73 HR Card: RRR, soft sys murmur. Resp: CTAB, no wheezing, rhonchi or rales Abd: appropriately tender to palpation, uterus firm. Extremities: reflexes 1+ A&P: transfer to PP unit for routine PP care. Stop Mag drip, and monitor vitals closely.
[2019-10-10] MEDS: Lactated Ringer's 1,000 ML IV SCH (16:13)
[2019-10-11] MEDS: Ibuprofen 800 MG TAB PO SCH ×3 (00:57→15:42)
[2019-10-11] MEDS ORDERED: Chloraseptic Spray 180 ml Bottle PO PRN (01:15)
[2019-10-11] MEDS: Docusate Calcium (SURFAK) 240 MG CAP PO SCH ×3 (01:36→09:26)
[2019-10-11] MEDS: Lactated Ringer's 1,000 ML IV SCH ×2 (01:36→09:26)
[2019-10-11 05:32] LABS: #Eosinphils 0.1 thou/uL (0.0-0.7); #Lymphocytes 3.4 thou/uL (1.20-3.40); #Monocytes 0.5 thou/uL (0.11-0.59); #Neutrophils 7.1 thou/uL (1.40-6.50); %Basophils 0.3 % (0.0-1.0); %Eosinophils 1.3 % (0.0-10.0); %Lymphocytes 30.4 % (21.0-51.0); %Monocytes 4.4 % (0.0-10.0); %Neutrophils 63.5 % (42.0-75.0); Mean Corpuscular HGB CONC 34.5 g/dL (32.0-36.0); Mean Corpuscular Hemoglobin 28.6 pg (27.0-31.0); Mean Corpuscular Volume 82.8 fL (78.0-98.0); Mean Platelet Volume 7.5 fL (7.4-10.4); Platelet Count 116 thou/uL (130-400); RBC Distribution Width 12.4 % (11.5-14.5); Red Blood Cell (RBC) Count 2.43 mill/uL (4.20-5.40); White Blood Cell (WBC) Count 11.2 thou/uL (4.8-10.8)
[2019-10-11] MEDS: Prenatal Vitamin 1 TAB PO SCH (08:00)
[2019-10-11] MEDS: Ferrous Sulfate 325 MG TAB PO SCH ×4 (08:01→17:07)
--- NOTE | 2019-10-11 08:19 | PDOC.PP ---
Post Progress Note Post Day #: 2 Subjective: Patient doing well. She states lochia is now less than a period. She denies dizziness upon standing. She states that she is eating well. She is really wanting to go home today. PO intake tolerated: yes Flatus: yes Ambulation: yes Vital Signs (12 hours) Temp Pulse Resp BP BP Pulse Ox 10/11/19 08:05 98.2 F 77 20 121/84 97 10/11/19 04:30 98.2 F 88 20 112/69 10/11/19 00:55 98.6 F 77 16 118/71 97 10/10/19 20:40 98.9 F 87 20 127/75 98 Weight Weight 69.4 kg - Physical Examination General: NAD Cardiovascular: RRR Respiratory: non-labored breathing Abdominal: + bowel sounds, lochia (less than period), no distention, appropriately TTP Fundus firm & at: at umbilicus Skin: no rash Neurological: no gross focal deficits Psychiatric: A&Ox3, normal affect Result Diagrams: 10/11/19 05:07 10/10/19 08:40 Additional Labs: Post Labs Blood Type O POSITIVE 10/09/19 06:42 Hep Bs Antigen Non-Reactive S/CO (NonReactive) 10/09/19 06:21 (1) Term delivered Code(s): O80 - ENCOUNTER FOR FULL-TERM UNCOMPLICATED DELIVERY Status: Acute - Assessment/Plan Routine PP Care - PP day #2 - Lochia less than period - H/H dropped to 7.0/20.1; patient asymptomatic, appears to be stabilizing - H/H drop explained by retained products of conception s/p D&C with resolution of heavy bleeding - Continue iron BID with stool softener - Rh +, rubella immune - GBS unknown Anemia 2/2 retained products of conception - s/p D&C - H/H this AM 7.0/20.1 - Patient asymptomatic - VSS, no tachycardia - Source of bleeding has been identified and patient underwent D&C - Lochia now less than period - Continue BID iron supplementation Pre-E with severe features - BP's in PP period have been WNL - Patient asymptomatic in regards to headache, RUQ pain, swelling - Has not required PRN medications Dispo: Plan for d/c home today vs. B&B depending on 's bilirubin/ phototherapy.
[2019-10-11] MEDS ORDERED: Varicella virus, LIVE 0.5 ML VIAL SC ONE (09:00)
[2019-10-11 11:34] VITALS: BP 113/58; TEMP 98.4
--- NOTE | 2019-10-14 00:29 | PQF ---
Shy Antoine MICHAEL MD [id number] CLINICAL DOCUMENTATION CLARIFICATION FORM: POST DISCHARGE Addendum to original discharge summary date: 10/11/19 Late entry note date: 10/21/19 DATE: 10/14/19 ATTN: Dr Sabra Smith Please exercise your independent, professional judgment in responding to the clarification form. Clinical indicators are provided on the bottom of this form for your review Can you please specify type of Anemia if : Please check appropriate box(s): [ x ] Acute blood loss anemia [ ] Post-op anemia related to acute blood loss [ ] Chronic Blood loss Anemia [ ] Other diagnosis [ ] Unable to determine In addition, please specify: Present on Admission (POA): [ ] Yes [ ] No [ ] Unable to determine For continuity of documentation, please document condition throughout progress notes and discharge summary. Thank You. CLINICAL INDICATORS - SIGNS / SYMPTOMS / LABS PN p2 10/11 Dr Lovell H/H dropped to 7.0/20.1; pt asymptomatic appears to be stabilizing PN p2 10/11 Dr Lovell H/H drop explained by retained products of conception s/p D&C with resolution of heavy bleeding Laboratory Hematology 10/10 Hgb 7.9, Hct 23.0 Laboratory Hematology 10/11 Hgb 7.0, Hct 20.1 RISK FACTORS OB PN p1 - 24 year old @ 37.5 delivered via PN p2 10/11 - Anemia 2/2 retained products of conception TREATMENTS: PN - s/p D&C MAR BID Iron supplement MAR Bstool softener (This form is maintained as a part of the permanent medical record) 2014 [employer] All Rights Reserved [email or web address] [not provided] [email or web address]
== END 2019-10-11 18:00 | disposition home or self-care (01) | DRG 798 ==
LOC: L&D/OP 05:31 → L&D 06:34 → 3SW 10-10 14:43
PROVIDERS: ADMIT Obstetrics & Gynecology; ATTEND Obstetrics & Gynecology
PROC: 10E0XZZ Delivery of Products of Conception, External Approach (ICD-10-PCS; principal; 2019-10-09)
PROC: 10D17ZZ Extraction of Products of Conception, Retained, Via Natural or Artificial Opening (ICD-10-PCS; 2019-10-09)
PROC: 0HQ9XZZ Repair Perineum Skin, External Approach (ICD-10-PCS; 2019-10-09)
PROC: 10H07YZ Insertion of Other Device into Products of Conception, Via Natural or Artificial Opening (ICD-10-PCS; 2019-10-09)
DX: O14.14 Severe pre-eclampsia complicating childbirth (principal); Z37.0 Single live birth; Z3A.37 37 weeks gestation of pregnancy; O76 Abnormality in fetal heart rate and rhythm complicating labor and delivery; D50.0 Iron deficiency anemia secondary to blood loss (chronic); O90.81 Anemia of the puerperium; O72.2 Delayed and secondary postpartum hemorrhage
CPT/HCPCS: 36415; 36416; 51702; 80053; 81003; 85025; 85027; 85610; 85730; 86780; 86850; 86900; 86901; 87340; 88305; 88307; 99285; J0295; J0360; J0595; J1100; J2001; J2270; J2405; J2704; J3010; J3475; J3490

== ENCOUNTER 2023-09-06 14:08 | Emergency (ER) | payer MEDICAID, SELFPAY ==
[~2023-09-06 14:08] MED LIST: Iopamidol-370 76% 500 ML MDV (1 ML CHARGE) ONE
[2023-09-06 14:48] LABS: #Basophils 0.1 thou/uL (0.0-0.2); #Eosinphils 0.2 thou/uL (0.0-0.7); #Monocytes 0.5 thou/uL (0.11-0.59); #Neutrophils 4.9 thou/uL (1.40-6.50); %Basophils 0.6 % (0.0-1.0); %Lymphocytes 36.6 % (21.0-51.0); %Neutrophils 54.4 % (42.0-75.0); Hematocrit 33.2 % (36.0-47.0); Hemoglobin 11.3 g/dL (12.0-16.0); Mean Corpuscular Hemoglobin 28.8 pg (27.0-31.0); Mean Corpuscular Volume 84.5 fl (78.0-98.0); Mean Platelet Volume 9.4 fL (7.4-10.4); Platelet Count 275 10x3/uL (130-400); RBC Distribution Width 12.1 % (11.5-14.5); Red Blood Cell (RBC) Count 3.93 mill/uL (4.20-5.40); White Blood Cell (WBC) Count 9.1 10x3/uL (4.8-10.8)
[2023-09-06 15:06] LABS: BHCG - Serum Negative (NEGATIVE); Pregs Control Background? CLEAR/WHITE (CLR/WHITE); Pregs Control Bar Appear? YES (CONTROL BAR)
[2023-09-06 15:09] LABS: ALT (SGPT) 47 U/L (8-55); AST (SGOT) 27 U/L (5-34); Albumin 4.5 g/dL (3.5-5.0); Alkaline Phosphatase 77 U/L (40-110); Anion Gap 15 mmol/L (10-20); BUN (Urea Nitrogen) 10 mg/dL (7.0-18.7); Bilirubin, Total 0.3 mg/dL (0.2-1.2); Calc. Creatinine Clearance 0 mL/min (70-130); Calcium 9.5 mg/dL (7.8-10.44); Carbon Dioxide 22 mmol/L (22-29); Chloride 105 mmol/L (98-107); Estimated GFR 122; Globulin 3.3 g/dL (2.4-3.5); Glucose 91 mg/dL (70-105); Potassium 3.4 mmol/L (3.5-5.1); Protein, Total 7.8 g/dL (6.0-8.3); Sodium 139 mmol/L (136-145)
[2023-09-06 15:13] LABS: Troponin I Less than 0.010 ng/mL (< 0.028)
[2023-09-06] MEDS ORDERED: Ketorolac Tromethamine 30 MG/ML VIAL ONE (16:02)
== END 2023-09-06 17:38 | disposition home or self-care (01) ==
LOC: ERS 14:08
DX: R07.9 Chest pain, unspecified (principal); R59.0 Localized enlarged lymph nodes
CPT/HCPCS: 36415; 71045; 71275; 80053; 84484; 84703; 85025; 85379; 93005; 96374; J1885; Q9967